=== PATIENT | female | born 1985 ===

== ENCOUNTER 2024-06-13 08:21 | Emergency (ER) | payer BC ==
--- OUTSIDE RECORDS SUMMARY | 2024-06-13 08:25 | XMS REPORT | Continuity of Care Document ---
Author Name Unknown Address [address] [facility] [address] [place] [address] [facility] thconnect Address [address] [facility] [place] [address] Care Team Providers Care Office Director Name Role Phone Zulma Granados Primary Care Physicia n [email or web address]_S Attending Clinician Unavaila ble Visit, Ang-Rmchp Nurse Attending Clinician Unava ilable Zulma Granados Attending Clinician + ZULMA PENA Attending Clinician Unavail able Nat Hughes Attending Clinician + [phone] NAT GLEASON Attending Clinician Unavailab le Doctor Unassigned, Ganister Attending Clinician U deedee Sheppard RN, Bárbara Wright Attending Clinician Unavaila ble Only, Ang Db Test Attending Clinician UnavailBritney Morales MD Attending Clinician [phone] Rowan Sanchez Attending Clinician [phone] ROWAN BOOTHE Attending Clinician UnavailJose L Landry DO Attending Clinician [phone] Mitch Smith DO Attending Clinician [phone] Lab, Ang-Rmchsamra Attending Clinician Unavailable Provider, Ang-Rmchp Temp Attending Clinician Mirian vailaBaylee Lucero Attending Clinician + [phone] BAYLEE HERNANDEZ Attending Clinician Unavailab montilla [email or web address]_Kadiyala_S Admitting Clinician Ayse simms Payers Payer Name Policy Type Policy Number Effective Date Expirati on Date Source MEDICAID OF [place] [id number] 2020 00:00:00 [employer] MEDICAID [id number] 2020 00:00:00 Problems Condition Name Condition Details Condition Category Status Onset Date Resolution Date Last Treatment Date Treating Clinician Comments Source Deep pain on intercours e Deep Pain on Intercours e Problem Active 2023-06- 00:00: 00 [facility] Smoker Smoker Problem Active 2023-06 00:00: 00 [facility] Insomnia Insomnia Problem Active 2023-06 0-03 00:00: 00 [facility] Menopausal syndrome Menopausal Syndrome Problem Active 2023-06 0-03 00:00: 00 [facility] Joint pain Joint Pain Problem Active 2023-06 0-03 00:00: 00 [facility] Fatigue Fatigue Problem Active 2023-06 0-03 00:00: 00 [facility] Excessive menstruati on with irregular cycle Excessive Menstruati on with Irregular Cycle Problem Active 2023-06 0-03 00:00: 00 [facility] Lack or loss of sexual desire Lack or Loss of Sexual Desire Problem Active 2023-06 0-03 00:00: 00 [facility] Depressive disorder Depressive Disorder Problem Active 2023-06 0-03 00:00: 00 [facility] Depo-Prove ra contracept kyara status Depo-Prove ra contracept kyara status Disease Active 9-08 00:00: 00 [facility] Tobacco use disorder Tobacco use disorder Disease Active 1- 00:00: 00 [facility] History of miscarriag e History of miscarriag e Disease Active 2019-06 1- 00:00: 00 [facility] Cervical Papanicola ou smear negative within last 12 months Cervical Papanicola ou smear negative within last 12 months Disease Active 2018-06 0- 00:00: 00 Overview: Formattin g of this note might be different from the original. 06/2018- nil pap and neg hpv- see scanned records [facility] BMI 32.0-32.9, adult BMI 32.0-32.9, adult Disease Active 2018-06 00:00: 00 [facility] Screening examinatio n for STD (sexually transmitte d disease) Screening examinatio n for STD (sexually transmitte d disease) Disease Active 2018-06 00:00: 00 [facility] Pain of breast Pain of Breast Problem Active 07-05 00:00: 00 [facility] Mild major depression , single episode Mild Major Depression , Single Episode Problem Active 07-05 00:00: 00 [facility] Irregular periods Irregular Periods Problem Active 2016-06 00:00: 00 [facility] Epidermoid cyst of skin Epidermoid Cyst of Skin Problem Active 2016-06 00:00: 00 [facility] Anxiety disorder Anxiety Disorder Problem Active 11-05 00:00: 00 [facility] Contracept ion care education Contracept ion Care Education Problem Active 08-13 00:00: 00 [facility] Miscarriag e without complicati on Miscarriag e without Complicati on Problem Active 08-06 00:00: 00 [facility] Cyst of right ovary Cyst of Right Ovary Problem Active 3 00:00: 00 [facility] Threatened miscarriag e Threatened Miscarriag e Problem Active 08-03 00:00: 00 [facility] Secondary amenorrhea Secondary Amenorrhea Problem Active 07-26 00:00: 00 [facility] Elevated blood-pres sure reading without diagnosis of hypertensi on Elevated Blood-pres sure Reading without Diagnosis of Hypertensi on Problem Active 06-09 00:00: 00 [facility] Tobacco dependence caused by cigarettes Tobacco Dependence Caused by Cigarettes Problem Active 06-09 00:00: 00 [facility] Vitamin D deficiency Vitamin D Deficiency Problem Active 1 00:00: 00 [facility] Excessive and frequent menstruati on Excessive and Frequent Menstruati on Problem Active 2015-06 00:00: 00 [facility] Gynecologi pierre examinatio n abnormal Gynecologi pierre Examinatio n Abnormal Problem Active 2015-06 00:00: 00 [facility] Allergies, Adverse Reactions, Alerts Allergy Name Allergy Type Status Severity Reaction(s) Onset Date Inactive Date Treating Clinician Comments Source NO KNOWN ALLERGIE S Drug Class Active [facility] Social History Social Habit Start Date Stop Date Quantity Comments Source History of tobacco use 1999-03-14 00:00:00 Cigarette Smoker [facility] ASSERTION [facility] SDOH Alcohol Frequency [facility] History SDOH Alcohol Std Drinks [facility] History SDOH Alcohol Binge [facility] Exposure to SARS-CoV-2 (event) 2022-07-19 00:00:00 2022-07-29 08:30:00 Not sure [facility] History of Social function 2022-07-29 00:00:00 2022-07-29 00:00:00 [facility] Alcohol Comment 2020-11-18 00:00:00 2020-11-18 00:00:00 social [facility] Cigarettes smoked current (pack per day) - Reported 2019-10-19 00:00:00 2019-10-19 00:00:00 [facility] Tobacco use and exposure 2019-10-19 00:00:00 2019-10-19 00:00:00 Smokeless tobacco non-user [facility] Alcohol intake 2019-10-19 00:00:00 2019-10-19 00:00:00 Ex-drinker (finding) [facility] Tobacco Comment 2019-10-19 00:00:00 2019-10-19 00:00:00 15-20 cigarettes a day [facility] Sex Assigned At 1985 00:00:00 1985 00:00:00 [facility] Smoking Status Start Date Stop Date Source Heavy Tobacco Smoker [facility] Smokes tobacco daily 2019-10-19 00:00:00 [facility] Medications Ordered Medication Name Filled Medication Name Start Date Stop Date Current Medication? Ordering Clinician Indication Dosage Frequency Signature (SIG) Comments Components Source medroxyPROG ESTERone (DEPO-PROVE RA) syringe 150 mg 02-11 14:15: 00 01-13 13:59 :00 No [id number] 150mg [facility] medroxyPROG ESTERone (DEPO-PROVE RA) injection 150 mg 02-11 13:30: 00 02-11 13:24 :58 No [id number] 150mg [facility] buPROPion SR (WELLBUTRIN SR) 150 mg SR tablet 07-01 00:00: 00 Yes [id number] 150mg Take 1 tablet by mouth 2 (two) times daily. First 3 days take 1 tablet by mouth, then one tablet by mouth twice daily for 7-12 weeks [facility] Advil 200 mg tablet Take 1 tablet every 6 hours by oral route. Advil 200 mg tablet Take 1 tablet every 6 hours by oral route. No 1 Q6H Advil 200 mg tablet Take 1 tablet every 6 hours by oral route. [facility] albuterol 90 mcg-budeson maria a 80 mcg/actuati on HFA aerosol inhaler Inhale by inhalation route. albuterol 90 mcg-budeson maria a 80 mcg/actuati on HFA aerosol inhaler Inhale by inhalation route. No albuterol 90 mcg-budeso nide 80 mcg/actuat ion HFA aerosol inhaler Inhale by inhalation route. [facility] Depo-Flavor Extractor a 150 mg/mL intramuscul ar suspension Inject 1 mL every 3 months by intramuscul ar route. Depo-Flavor Extractor a 150 mg/mL intramuscul ar suspension Inject 1 mL every 3 months by intramuscul ar route. No 1mL Depo-Prove ra 150 mg/mL intramuscu lar suspension Inject 1 mL every 3 months by intramuscu lar route. [facility] escitalopra m 10 mg tablet Take 1 tablet every day by oral route. escitalopra m 10 mg tablet Take 1 tablet every day by oral route. No 1 Q1D escitalopr am 10 mg tablet Take 1 tablet every day by oral route. [facility] sumatriptan 50 mg tablet Take by oral route. sumatriptan 50 mg tablet Take by oral route. No sumatripta n 50 mg tablet Take by oral route. [facility] cholecalcif hillary (vitamin D3) 1,250 mcg (50,000 unit) capsule Take 1 capsule every week by oral route for 90 days. cholecalcif hillary (vitamin D3) 1,250 mcg (50,000 unit) capsule Take 1 capsule every week by oral route for 90 days. No 1capsul e(s) Q1W cholecalci ferol (vitamin D3) 1,250 mcg (50,000 unit) capsule Take 1 capsule every week by oral route for 90 days. [facility] Tums Tums No Tums [facility] Vital Signs Vital Name Observation Time Observation Value Comments S ource Height 2024-04-06 00:00:00 64 [in_i] [facility] Body Weight 2024-04-06 00:00:00 181.6 [lb_av] [facility] BP Diastolic 2024-04-06 00:00:00 85 mm[Hg] [facility] BP Systolic 2024-04-06 00:00:00 126 mm[Hg] [facility] BMI (Body Mass Index) 2024-04-06 00:00:00 31.2 kg/m2 [facility] BP Diastolic 2024-03-13 00:00:00 85 mm[Hg] [facility] Body Weight 2024-03-13 00:00:00 181.6 [lb_av] [facility] BMI (Body Mass Index) 2024-03-13 00:00:00 31.2 kg/m2 [facility] Height 2024-03-13 00:00:00 64 [in_i] [facility] BP Systolic 2024-03-13 00:00:00 128 mm[Hg] [facility] Body Weight 2024-03-08 00:00:00 181.8 [lb_av] [facility] BP Systolic 2024-03-08 00:00:00 121 mm[Hg] [facility] BMI (Body Mass Index) 2024-03-08 00:00:00 31.2 kg/m2 [facility] Height 2024-03-08 00:00:00 64 [in_i] [facility] BP Diastolic 2024-03-08 00:00:00 83 mm[Hg] [facility] Systolic blood pressure 2022-07-29 14:52:00 122 mm[Hg] [facility] Diastolic blood pressure 2022-07-29 14:52:00 82 mm[Hg] [facility] Heart rate 2022-07-29 14:40:00 96 /min [facility] Body temperature 2022-07-29 14:40:00 37 Diana [facility] Respiratory rate 2022-07-29 14:40:00 18 /min [facility] Body height 2022-07-29 14:40:00 165.1 cm [facility] Body weight 2022-07-29 14:40:00 87.272 kg [facility] BMI 2022-07-29 14:40:00 32.02 kg/m2 [facility] Systolic blood pressure 2022-05-06 14:30:00 130 mm[Hg] [facility] Diastolic blood pressure 2022-05-06 14:30:00 90 mm[Hg] [facility] Heart rate 2022-05-06 14:29:00 93 /min [facility] Body temperature 2022-05-06 14:29:00 36.33 Diana [facility] Respiratory rate 2022-05-06 14:29:00 18 /min [facility] Body weight 2022-05-06 14:29:00 88.179 kg [facility] BMI 2022-05-06 14:29:00 32.35 kg/m2 [facility] Systolic blood pressure 2022-02-11 12:53:00 129 mm[Hg] [facility] Diastolic blood pressure 2022-02-11 12:53:00 81 mm[Hg] [facility] Heart rate 2022-02-11 12:53:00 95 /min [facility] Body temperature 2022-02-11 12:53:00 36.28 Diana [facility] Respiratory rate 2022-02-11 12:53:00 20 /min [facility] Body height 2022-02-11 12:53:00 165.1 cm [facility] Body weight 2022-02-11 12:53:00 87.635 kg [facility] BMI 2022-02-11 12:53:00 32.15 kg/m2 [facility] Procedures Procedure Date / Time Performed Performing Clinicia n Source US TRANSVAGINAL 2024-04-06 00:00:00 [facility] MAMMO, screening, digital, bilateral 2024-03-13 00:00:00 [facility] Tooth Extraction [facility] pierre Encounters Start Date/Time End Date/Time Encounter Type Admission Type Attending [facility] Care Facility Care Department Encounter ID Source 2021-04-04 10:42:[address] [facility] [id number] [facility] 2024-04-18 00:00:00 2024-04-18 00:00:00 Rossana Hightower MD: [address], [place] [address] , Ph. Formerly [facility] - GC_GCBZW_La norah Keebde* [id number] [facility] 2024-04-06 00:00:00 2024-04-06 00:00:00 Rossana Hightower MD: [address], [place] [address] , Ph. Formerly [facility] - GC_GCBZW_Candice Kebede* [id number] [facility] 2024-03-13 00:00:00 2024-03-13 00:00:00 KRISHAN Cheung: [address], [place] [address] , Ph. Formerly [facility] - GC_GCBZW_Candice Kebede* [id number] [facility] 2024-03-08 00:00:00 2024-03-08 00:00:00 CANDICE Fiore: [address], [place] [address] , Ph. Formerly [facility] - GC_GCBZW_Candice Kebede* [id number] [facility] 2023-04-01 00:00:00 2023-04-01 00:00:00 Outpatient GC_GCBZW_Ka dikhurrama_S [facility] [id number] [facility] 2023-01-28 09:53:09 2023-01-28 09:53:09 Outpatient [facility] [id number] Carlos Muniz 2022-11-01 08:59:18 2022-11-01 08:59:18 Outpatient [facility] [id number] Carlos Muniz 2022-10-29 09:03:06 2022-10-29 09:03:06 Outpatient [facility] [id number] Carlos Muniz 2022-10-27 09:26:27 2022-10-27 09:26:27 Outpatient [facility] [id number] Carlos Muniz 2022-10-26 08:30:00 2022-10-26 08:30:[address] [facility] [id number] [facility] 2022-10-20 08:54:09 2022-10-20 08:54:09 Outpatient [facility] [id number] Carlos Muniz 2022-10-01 11:09:21 2022-10-01 11:09:21 Outpatient [facility] [id number] Carlos Muniz 2022-07-29 08:30:00 2022-07-29 08:49:04 Nurse Visit Visit, Zulma Nguyen [facility] ENVIRONMENTAL SPECIALIST [facility] ..840.114 350.1.13.10 4.2.7.2.686 [id number] [facility] 2022-07-29 08:30:00 2022-07-29 08:30:00 Outpatient R ZULMA PENA [facility] [id number] [facility] 2022-05-06 08:30:00 2022-05-06 08:30:00 Outpatient R ZULMA PENA [facility] [id number] [facility] 2022-05-06 08:30:00 2022-05-06 08:30:00 Nurse Visit Visit, Romeo-Zulma Brand [facility] ENVIRONMENTAL SPECIALIST [facility] ..840.114 350.1.13.10 4.2.7.2.686 [id number] [facility] 2022-02-11 07:45:00 2022-02-11 08:39:17 Office Visit Nat Gleason [facility] ENVIRONMENTAL SPECIALIST [facility] 1..840.114 350.1.13.10 4.2.7.2.686 [id number] [facility] 2022-02-11 07:45:00 2022-02-11 08:39:17 Outpatient R NAT GLEASON [facility] [id number] [facility] 2022-02-11 07:45:00 2022-02-11 07:45:[address] [facility] [id number] [facility] 2022-02-11 00:00:00 2022-02-11 00:00:00 Orders Only Doctor Unassigned, Ganister [facility] ..840.114 350.1.13.10 4.2.7.2.686 [id number] [facility] 2022-02-04 09:15:00 2022-02-04 09:15:[address] [facility] [id number] [facility] 2021-11-30 09:00:00 2021-11-30 09:00:[address] [facility] [id number] [facility] 2021-11-30 09:00:00 2021-11-30 09:00:00 Outpatient R ZULMA PENA [facility] [id number] [facility] 2021-11-12 16:00:00 2021-11-12 16:00:[address] [facility] [id number] [facility] 2021-11-12 16:00:00 2021-11-12 16:00:00 Nurse Visit Visit, Romeo-Rmchp Nurse Zulma Pena [facility] ENVIRONMENTAL SPECIALIST [facility] 1.2.840.114 350.1.13.10 4.2.7.2.686 [id number] [facility] 2021-11-11 08:00:00 2021-11-11 08:00:[address] [facility] [id number] [facility] 2021-08-11 16:00:00 2021-08-11 16:00:[address] [facility] [id number] [facility] 2021-08-11 16:00:00 2021-08-11 16:00:00 Nurse Visit Visit, Zulma Nguyen [facility] ENVIRONMENTAL SPECIALIST [facility] ..840.114 350.1.13.10 4.2.7.2.686 [id number] [facility] 2021-08-11 16:00:00 2021-08-11 15:42:46 Outpatient R ZULMA PENA [facility] [id number] [facility] 2021-07-01 08:15:00 2021-07-01 09:17:24 Outpatient R ZULMA PENA [facility] [id number] [facility] 2021-07-01 08:15:00 2021-07-01 09:17:24 Office Visit Zulma Pena [facility] ENVIRONMENTAL SPECIALIST [facility] ..840.114 350.1.13.10 4.2.7.2.686 [id number] [facility] 2021-05-19 16:00:47 2021-05-19 16:12:40 Nurse Visit Visit, Zulma Nguyen [facility] ENVIRONMENTAL SPECIALIST [facility] 1..840.114 350.1.13.10 4.2.7.2.686 [id number] [facility] 2021-05-19 15:30:00 2021-05-19 15:30:00 Outpatient R ZULMA PENA [facility] [id number] [facility] 2021-05-19 00:00:00 2021-05-19 00:00:00 Orders Only Doctor Unassigned, Ganister [facility] 1.2.840.114 350.1.13.10 4.2.7.2.686 [id number] [facility] 2021-02-24 14:50:48 2021-02-24 15:08:00 Nurse Visit Visit, Romeo-Rmchp Nurse Zulma Pena [facility] ENVIRONMENTAL SPECIALIST [facility] 1..840.114 350.1.13.10 4.2.7.2.686 [id number] [facility] 2021-02-24 15:00:00 2021-02-24 15:00:[address] [facility] [id number] [facility] 2021-01-28 00:00:00 2021-01-28 00:00:00 Telephone Bárbara Sheppard [facility] 1..840.114 350.1.13.10 4.2.7.2.686 [id number] [facility] 2021-01-27 09:07:37 2021-01-27 09:17:37 Laboratory Only Only, Romeo Db Britney Romero [facility] 1..840.114 350.1.13.10 4.2.7.2.686 [id number] [facility] 2021-01-27 09:00:00 2021-01-27 09:00:[address] [facility] [id number] [facility] 2021-01-25 18:00:00 2021-01-25 18:00:[address] [facility] [id number] [facility] 2020-12-02 14:19:45 2020-12-02 14:43:06 Nurse Visit Visit, Ang-Rmchp Nurse Zulma Pena [facility] ENVIRONMENTAL SPECIALIST [facility] 1.840.114 350.1.13.10 4.2.7.2.686 [id number] [facility] 2020-12-02 14:00:00 2020-12-02 14:00:[address] [facility] [id number] [facility] 2020-11-18 15:14:13 2020-11-18 16:05:25 Office Visit Rowan Boothe [facility] ENVIRONMENTAL SPECIALIST [facility] 1.840.114 350.1.13.10 4.2.7.2.686 [id number] [facility] 2020-11-18 15:30:00 2020-11-18 15:30:00 Outpatient R ROWAN BOOTHE [facility] [id number] [facility] 2020-08-25 00:00:00 2020-08-25 00:00:00 Patient Outreach Jose L Farmer [facility] 1.840.114 350.1.13.10 4.2.7.2.686 [id number] [facility] 2020-05-16 09:47:00 2020-05-16 13:21:00 Emergency Singer [facility] 1.2840.114 350.1.13.10 4.2.7.2.686 [id number] [facility] 2020-05-16 09:47:00 2020-05-16 13:21:00 Emergency Singer [facility] 1.2840.114 350.1.13.10 4.2.7.2.686 [id number] 2020-05-15 00:00:00 2020-05-15 00:00:00 Telephone Zulma Pena [facility] ENVIRONMENTAL SPECIALIST [facility] 1.2.840.114 350.1.13.10 4.2.7.2.686 [id number] [facility] 2020-05-15 00:00:00 2020-05-15 00:00:00 Telephone Zulma Pena [facility] ENVIRONMENTAL SPECIALIST [facility] 1.2.840.114 350.1.13.10 4.2.7.2.686 [id number] 2020-05-08 10:30:00 2020-05-08 10:30:[address] [facility] [id number] [facility] 2020-04-24 00:00:00 2020-04-24 00:00:00 Orders Only Doctor Unassigned, Ganister [facility] 1.2.840.114 350.1.13.10 4.2.7.2.686 [id number] 2020-04-24 00:00:00 2020-04-24 00:00:00 Orders Only Doctor Unassigned, Ganister [facility] 1.2.840.114 350.1.13.10 4.2.7.2.686 [id number] [facility] 2020-04-14 10:34:25 2020-04-14 10:53:05 Maintenance Instructor Visit Lab, Kristen [facility] 1.2.840.114 350.1.13.10 4.2.7.2.686 [id number] 2020-04-14 10:34:25 2020-04-14 10:53:05 Maintenance Instructor Visit Lab, Kristen SaavedrarogersZulma meeks [facility] ENVIRONMENTAL SPECIALIST [facility] 1.2.840.114 350.1.13.10 4.2.7.2.686 [id number] [facility] 2020-04-14 10:30:00 2020-04-14 10:30:[address] [facility] [id number] [facility] 2020-04-11 14:08:13 2020-04-11 15:27:30 Initial Visit Rowan Boothe [facility] ENVIRONMENTAL SPECIALIST [facility] 1.2.840.114 350.1.13.10 4.2.7.2.686 [id number] 2020-04-11 14:08:13 2020-04-11 15:27:30 Initial Visit Rowan Boothe [facility] ENVIRONMENTAL SPECIALIST [facility] 1.2.840.114 350.1.13.10 4.2.7.2.686 [id number] [facility] 2020-04-11 14:00:00 2020-04-11 14:00:00 Outpatient R ROWAN BOOT[address] [facility] [id number] [facility] 2020-04-11 00:00:00 2020-04-11 00:00:00 Orders Only Doctor Unassigned, Ganister [facility] 1.2.840.114 350.1.13.10 4.2.7.2.686 [id number] 2020-04-11 00:00:00 2020-04-11 00:00:00 Orders Only Doctor Unassigned, Ganister [facility] 1.2.840.114 350.1.13.10 4.2.7.2.686 [id number] [facility] 2020-02-20 00:00:00 2020-02-20 00:00:00 Patient Secure Msg Doctor Unassigned, Ganister [facility] 1.2.840.114 350.1.13.10 4.2.7.2.686 [id number] [facility] 2019-11-27 15:45:00 2019-11-27 15:45:00 Outpatient R ZULMA PENA [facility] [id number] [facility] 2019-11-16 11:00:00 2019-11-16 11:00:00 Outpatient R ZULMA PENA [facility] [id number] [facility] 2019-11-15 00:00:00 2019-11-15 00:00:00 Telephone Zulma Pena [facility] ENVIRONMENTAL SPECIALIST [facility] 1.2.840.114 350.1.13.10 4.2.7.2.686 [id number] 2019-11-15 00:00:00 2019-11-15 00:00:00 Telephone Zulma Pena [facility] ENVIRONMENTAL SPECIALIST [facility] 1.2.840.114 350.1.13.10 4.2.7.2.686 [id number] [facility] 2019-10-31 10:03:07 2019-10-31 10:18:07 Maintenance Instructor Visit Lab, Kristen SaavedrarogersconstantinoZulma [facility] ENVIRONMENTAL SPECIALIST [facility] [id number] [id number] [facility] 2019-10-31 10:15:00 2019-10-31 10:15:00 Outpatient R ZULMA PENA [facility] [id number] [facility] 2019-10-25 00:00:00 2019-10-25 00:00:00 Telephone Zulma Pena [facility] ENVIRONMENTAL SPECIALIST [facility] [id number] [id number] [id number] [id number] [facility] 2019-10-24 10:37:40 2019-10-24 10:52:30 Maintenance Instructor Visit Lab, Brandtchsamra SaavedrarogersconstantinoZulma [facility] ENVIRONMENTAL SPECIALIST [facility] [id number] [id number] [id number] [facility] 2019-10-24 10:00:00 2019-10-24 10:00:[address] [facility] [id number] [facility] 2019-10-23 00:00:00 2019-10-23 00:00:00 Telephone QuentinrogersZulma meeks [facility] ENVIRONMENTAL SPECIALIST [facility] 1.20.114 [id number] [id number] [id number] [facility] 2019-10-22 08:33:23 2019-10-22 08:42:46 Maintenance Instructor Visit Lab, Zulma Newby [facility] 1..114 [id number] [id number] [id number] [facility] 2019-10-22 08:30:00 2019-10-22 08:30:[address] [facility] [id number] [facility] 2019-10-19 13:12:47 2019-10-19 14:35:11 Initial Visit Provider, Baylee Jensen [facility] 1.2.114 [id number] [id number] [id number] [facility] 2019-10-19 13:30:00 2019-10-19 13:30:00 Outpatient R BAYLEE HERNANDEZ [facility] [id number] [facility] 2019-10-19 00:00:00 2019-10-19 00:00:00 Orders Only Doctor Unassigned, [place] [id number] [id number] [id number] [id number] [facility] Results Test Description Test Time Test Comments Results Result Co mments Source [facility], apt HPV,rfx 16/18,[id number] 00:00:00* Test Item Value Reference Range Interpretation Comme nts diagnosis: (test code = diagnosis:) COMMENT specimen adequacy: (test cod e = specimen adequacy:) COMMENT performed by: (test code = p erformed by:) COMMENT note: (test code = note:) COMMENT test methodology: (test code = test methodology:) COMMENT HPV aptima (test code = HPV aptima) NEGATIVE negative [facility] Medical[facility]osterone, free+total lc/[id number] 00:00:00* Test Item Value Reference Range Interpretation Comme nts testosterone, total, lc/MS ( test code = testosterone, total, lc/MS) 17.3 NG/dL 10.0-55.0 free testosterone(direct) (t est code = free testosterone(direct)) 1.1 pg/mL 0.0-4.2 [facility] [id number]-Qxmtgfmjaaojdf D3+25-Hydroxyvitamin D2 [Mass/volume] in Serum or [id number] 00:00:00* Test Item Value Reference Range Interpretation Comme nts vitamin D III (test code = v itamin D III) 15.9 NG/mL 32.0-100.0 L [facility] MedicalEstradiol (E2) [Mass/volume] in Serum or [id number] 00:00:00 * Test Item Value Reference Range Interpretation Comme nts estradiol (test code = estradiol) 25.4 pg/mL 6.1-91.9 [facility] MedicalTriiodothyronine (T3) Free [Mass/volume] in Serum or Plasma 2024-03-09 00:00:00* Test Item Value Reference Range Interpretation Comme nts free T3 (test code = free T3) 3.5 pg/mL 2.0-4.7 [facility] MedicalDehydroepiandrosterone sulfate (DHEA-S) [Mass/volume] in Serum or [id number] 00:00:00* Test Item Value Reference Range Interpretation Comme nts DHEA-S (test code = DHEA-S) 183.0 ug/dL 98.8-340.0 [facility] MedicalFollitropin [Units/volume] in Serum or [id number] 00:00:00* Test Item Value Reference Range Interpretation Comme nts FSH (test code = FSH) 7.5 mIU/mL [facility]
[2024-06-13] MEDS ORDERED: HYDROCODONE/CHLORPHEN 5 ML/OSYR ONE (09:29)
[2024-06-13 09:38] LABS: SARS-CoV-2 Antigen CONTROL BLUE LINE VIS/BG OK; SARS-CoV-2 Antigen Rapid Res Negative (Negative)
--- NOTE | 2024-06-13 10:18 | RAD REPORT ---
EXAMINATION: ONE VIEW CHEST XR CLINICAL INDICATION: Female, 39 years old.,fever, cough TECHNIQUE: Frontal chest projection is submitted. Examination is limited by patient positioning and t echnique. COMPARISON: No prior exam. FINDINGS: The lungs are well inflated and clear. No pneumothorax or sizable effusion. The heart is normal in s ize. Mediastinal contours are unremarkable. IMPRESSION: No acute intrathoracic abnormalities.
--- NOTE | 2024-06-13 10:47 | ER ---
Nurse's Notes [facility] Name: Citlaly José Age: 39 yrs Sex: Female : 1985 Arrival Date: 06/13/2024 Time: 08:21 Bed 19 Private MD: Diagnosis: Influenza due to identified novel influenza A virus with other respiratory manifestations Presentation: 06/13 08:59 Chief complaint: Patient states: cough, fever, chills, body aches since Tuesday. iw Coronavirus screen: Client presents with at least one sign or symptom that may indicate coronavirus-19. Ebola Screen: No symptoms or risks identified at this time. Initial Sepsis Screen: Does the patient have a suspected source of infection?. Risk Assessment: Do you want to hurt yourself or someone else? Patient reports no desire to harm self or others. Onset of symptoms was June 11, 2024. 08:59 Method Of Arrival: Ambulatory iw 08:59 Acuity: JACK 4 iw 11:18 Initial Sepsis Screen: Does the patient meet any 2 criteria? HR > 90 bpm. Does the tm6 patient have a suspected source of infection? No. Patient's initial sepsis screen is negative. Triage Assessment: 11:18 General: Appears in no apparent distress. Behavior is calm, cooperative. tm6 Historical: - Allergies: 09:00 No Known Allergies; iw - Immunization history:: Adult Immunizations not up to date. - Infectious Disease History:: Denies. - Social history:: Smoking status: Patient reports the use of cigarette tobacco products, smokes one pack cigarettes per day. - Family history:: not pertinent. - Hospitalizations: : No recent hospitalization is reported. Screenin:17 [facility] ED Fall Risk Assessment (Adult) History of falling in the last 3 months, tm6 including since admission No falls in past 3 months (0 pts) Confusion or Disorientation No (0 pts) Intoxicated or Sedated No (0 pts) Impaired Gait No (0 pts) Mobility Assist Device Used No (0 pt) Altered Elimination No (0 pt) Score/Fall Risk Level 0 - 2 = Low Risk Oriented to surroundings, Maintained a safe environment, Educated pt \T\ family on fall prevention, incl call for assistance when getting out of bed. Abuse screen: Denies threats or abuse. Denies injuries from another. Nutritional screening: No deficits noted. Tuberculosis screening: No symptoms or risk factors identified. Assessment: 11:17 Pain: Denies pain. tm6 Vital Signs: 09:01 BP 117 / 84; Pulse 117; Resp 20; Temp 99.9; Pulse Ox 98% ; Weight 83.91 kg; Height 5 bp ft. 4 in. ; 11:17 BP 124 / 97; Pulse 110; Resp 19; Temp 99.9(O); Pulse Ox 96% on R/A; MAP 107 mmHg; Pain tm6 0/10; 09:01 Body Mass Index 31.75 (83.91 kg, 162.56 cm) bp 11:17 Pain Scale: Adult tm6 ED Course: 08:27 Patient arrived in ED. ra3 08:29 Cecil Randolph MD is Attending Physician. rn 08:54 Sergio Boswell, SUNDAR is Primary Nurse. bp 09:00 Triage completed. iw 09:00 Arm band placed on. iw 09:17 XRAY Chest (1 view) In Process Unspecified. EDMS 11:17 Patient has correct armband on for positive identification. Provided Education on: use tm6 of prescription med. 11:17 No provider procedures requiring assistance completed. Patient did not have IV access tm6 during this emergency room visit. Administered Medications: 09:30 Drug: Tussionex Pennkinetic ER PO Suspension 5 ml PO once Route: PO; bp 09:39 Follow up: Response: No adverse reaction bp Medication: 11:17 VIS not applicable for this client. tm6 Outcome: 10:47 Discharge ordered by . rn 11:17 Discharged to home ambulatory, with family, tm6 11:17 Condition: stable 11:17 Discharge instructions given to patient, family, Instructed on discharge instructions, follow up and referral plans. medication usage, Demonstrated understanding of instructions, follow-up care, medications, Prescriptions given X 1, 11:18 Patient left the ED. tm6 Signatures: Dispatcher [employer] EDMS Crissy Hoang RN RN Cecil Randolph MD MD rn Peltier, Brian, RN RN bp Masterson, Tawney, RN RN tm6 [place] Dawn ra3
--- NOTE | 2024-06-13 10:48 | EDPHYS ---
Physician Documentation [facility] Name: Citlaly José Age: 39 yrs Sex: Female : 1985 Arrival Date: 06/13/2024 Time: 08:21 Bed 19 Private MD: ED Physician Cecil Randolph HPI: 06/13 10:44 This 39 yrs old Unknown Female presents to ER via Ambulatory with complaints of Fever, rn Cold Symptoms - 1of2. 10:44 The patient reports fever, not measured (subjective). Onset: The symptoms/episode rn began/occurred 3 day(s) ago. Modifying factors: Severity of symptoms: At their worst the symptoms were mild in the emergency department the symptoms are unchanged. The patient has not experienced similar symptoms in the past. Historical: - Allergies: 09:00 No Known Allergies; iw - Immunization history:: Adult Immunizations not up to date. - Infectious Disease History:: Denies. - Social history:: Smoking status: Patient reports the use of cigarette tobacco products, smokes one pack cigarettes per day. - Family history:: not pertinent. - Hospitalizations: : No recent hospitalization is reported. ROS: 10:44 Constitutional: Positive for fever and chills Respiratory: Positive for cough Neuro: rn Positive for headache and generalized malaise Exam: 10:44 Constitutional: This is a well developed, well nourished patient who is awake, alert, rn and in no acute distress. ENT: No stridor Cardiovascular: Tachycardic, regular Respiratory: Mild tachypnea, speaking full sentences, occasional cough Vital Signs: 09:01 BP 117 / 84; Pulse 117; Resp 20; Temp 99.9; Pulse Ox 98% ; Weight 83.91 kg; Height 5 bp ft. 4 in. ; 11:17 BP 124 / 97; Pulse 110; Resp 19; Temp 99.9(O); Pulse Ox 96% on R/A; MAP 107 mmHg; Pain tm6 0/10; 09:01 Body Mass Index 31.75 (83.91 kg, 162.56 cm) bp 11:17 Pain Scale: Adult tm6 MDM: 08:29 Medical Screening Exam initiated rn 10:44 Differential diagnosis: viral Infection, URI, pneumonia. Data reviewed: vital signs, rn nurses notes, lab test result(s), radiologic studies, plain films, and as a result, I will discharge patient. Counseling: I had a detailed discussion with the patient and/or guardian regarding the historical points, exam findings, and any diagnostic results supporting the discharge/admit diagnosis, lab results. 10:46 Independent interpretation of the following test(s) in the Emergency Department X-Ray: rn My interpretation is Chest x-ray images negative for pneumonia or pneumothorax per my interpretation. 06/13 08:30 Order name: Flu; Complete Time: 10:13 rn 06/13 08:30 Order name: SARS-COV-2 Antigen Rapid; Complete Time: 10:13 rn 06/13 08:30 Order name: Strep rn 06/13 09:41 Order name: Throat Culture EDMS 06/13 08:30 Order name: XRAY Chest (1 view); Complete Time: 10:30 rn Administered Medications: 09:30 Drug: Tussionex Pennkinetic ER PO Suspension 5 ml PO once Route: PO; bp 09:39 Follow up: Response: No adverse reaction bp Disposition Summary: 06/13/24 10:47 Discharge Ordered Notes: Location: Home rn Problem: new rn Symptoms: have improved rn Condition: Stable rn Diagnosis - Influenza due to identified novel influenza A virus with other respiratory rn manifestations Followup: rn - With: Private Physician - When: As needed - Reason: Recheck today's complaints, Re-evaluation by your physician Discharge Instructions: - Discharge Summary Sheet rn - Influenza, Adult rn - Viral Respiratory Infection rn Forms: - Work release form iw - Medication Reconciliation Form rn - Antibiotic athletic training internship - Prescription Opioid Use rn - Patient Portal Instructions rn - Leadership Thank You Letter rn Prescriptions: - Prednisone 20 mg Oral Tablet - take 3 tablets ORAL route once daily for 5 days; 15 tablet; Refills: 0, Product rn Selection Permitted Signatures: Dispatcher [employer] Crissy Alvarez RN SUNDAR iw Cecil Randolph MD MD rn Peltier, Brian RN RN bp
[2024-06-13 11:22] VITALS: TEMP 99.9
[2024-06-13 11:24] VITALS: BP 124/97; O2SAT 96
== END 2024-06-13 11:18 | disposition home or self-care (01) ==
LOC: ER 08:21
DX: J10.1 Influenza due to other identified influenza virus with other respiratory manifestations (principal); Z11.52 Encounter for screening for COVID-19; F17.210 Nicotine dependence, cigarettes, uncomplicated
CPT/HCPCS: 36415; 71045; 87070; 87081; 87804; 87811; 99283